=== PATIENT | male | born 1965 | race Caucasian/White ===

== ENCOUNTER 2017-04-07 11:36 | Emergency (ER) | payer OTHER | END 2017-04-07 14:29 | disposition home or self-care (01) | LOC: ER 11:36 | DX: M54.5 Low back pain (principal); G89.29 Other chronic pain; I10 Essential (primary) hypertension; F17.210 Nicotine dependence, cigarettes, uncomplicated; V49.9XXS Car occupant (driver) (passenger) injured in unspecified traffic accident, sequela; Z79.899 Other long term (current) drug therapy | CPT/HCPCS: 72100; 96372; 99283-25 ==